=== PATIENT | male | born 1980 | race Two or more races ===

== ENCOUNTER 2020-03-29 06:09 | Outpatient (REF) | payer MEDICARE, MEDICAID, SELFPAY ==
[2020-03-29 11:33] LABS: Alanine Aminotransferase 23 U/L (0-40); Albumin Level 4.4 g/dL (3.5-5.0); Alkaline Phosphatase 53 U/L (39-117); Anion Gap 14 (12-20); Aspartate Amino Transferase 27 U/L (5-37); Bilirubin Total 0.4 mg/dL (0.0-1.0); Blood Urea Nitrogen 14 mg/dL (9-16); Calcium 8.6 mg/dL (8.4-10.2); Carbon Dioxide 25 mmol/L (22-29); Chloride 105 mmol/L (96-108); Cholesterol 235 mg/dL; Estimated Glomerular Filt Rate > 60; Glucose Fasting 92 mg/dL (60-99); HDL Cholesterol 49 mg/dL; LDL Cholesterol Calculated 168 mg/dl; Potassium 4.5 mmol/l (3.3-5.1); Sodium 139 mmol/L (135-145); Total Protein 7.1 g/dL (6.5-8.0); Triglycerides 91 mg/dL
[2020-03-29 11:56] LABS: TSH reflex Free T4 0.39 mIU/mL (0.32-4.0)
== END 2020-03-29 06:10 | disposition home or self-care (01) ==
LOC: HO.HMGCLDS 06:09
PROVIDERS: PCP Nurse Practitioner Family; Visit Provider Nurse Practitioner Family
DX: E78.5 Hyperlipidemia, unspecified (principal); R63.5 Abnormal weight gain; Z90.09 Acquired absence of other part of head and neck
CPT/HCPCS: 80053; 80061; 84443

== ENCOUNTER → 2020-05-20 10:14 | Outpatient (BNVA) | payer MEDICARE, MEDICAID, SELFPAY | PROVIDERS: PCP Nurse Practitioner Family; Visit Provider Internal Medicine Endocrinology, Diabetes & Metabolism | DX: Z76.89 Persons encountering health services in other specified circumstances (principal) | CPT/HCPCS: 99212 ==

== ENCOUNTER 2020-05-20 10:43 | Outpatient (REF) | payer MEDICARE, MEDICAID, SELFPAY ==
[2020-05-20 14:03] LABS: Cholesterol 200 mg/dL; HDL Cholesterol 48 mg/dL; LDL Cholesterol Calculated 134 mg/dl; Triglycerides 92 mg/dL
[2020-05-20 14:27] LABS: Free T4 (Free Thyroxine) 1.15 ng/dL (0.71-1.85); Thyroid Stimulating Hormone 0.73 uIU/mL (0.32-4.0); Vitamin D 25-OH Total 28.1 ng/mL (>30)
== END 2020-05-20 10:44 | disposition home or self-care (01) ==
LOC: HO.10HDL 10:43
PROVIDERS: Absent Provider Nurse Practitioner Family; Visit Provider Internal Medicine Endocrinology, Diabetes & Metabolism
DX: E89.0 Postprocedural hypothyroidism (principal); E05.00 Thyrotoxicosis with diffuse goiter without thyrotoxic crisis or storm; E78.5 Hyperlipidemia, unspecified; E55.9 Vitamin D deficiency, unspecified
CPT/HCPCS: 36415; 80061; 82306; 84439; 84443; 99212

== ENCOUNTER 2020-06-05 14:46 | Outpatient (REF) | payer MEDICAID, SELFPAY ==
--- NOTE | 2020-06-05 14:50 | XR_ITS ---
EXAMINATION: XR KNEE, RIGHT CLINICAL INFORMATION: Pain COMPARISON: None TECHNIQUE: Four views of the right knee. FINDINGS: No fracture or dislocation is seen. The patella may be slightly high or patella vinay. Bone alignment is otherwise normal. Joint spaces are normal. There is no joint effusion. There is an osteophyte at the patellar tendon insertion. XR/XR knee RT 4V IMPRESSION: Question high patella/patella vinay. Osteophyte at the tibial tubercle.
== END 2020-06-05 14:47 | disposition home or self-care (01) ==
LOC: HO.HMGCX 14:46
PROVIDERS: PCP Nurse Practitioner Family; Visit Provider Internal Medicine
DX: M25.561 Pain in right knee (principal)
CPT/HCPCS: 73564

== ENCOUNTER 2020-12-16 14:20 | Outpatient (REF) | payer MEDICARE, MEDICAID, SELFPAY ==
--- NOTE | ~2020-12-16 | US_ITS ---
EXAMINATION: US VENOUS ULTRASOUND WITH DOPPLER LOWER EXTREMITY, BILATERAL CLINICAL INFORMATION: Leg swelling. Right calf pain. Left thigh pain. Evaluate for deep vein thrombosis. COMPARISON: None TECHNIQUE: Ultrasound of the deep veins is performed from the hip to the calf with compression sonography and color and pulse Doppler assessment. Spectral analysis with color-flow imaging is performed. FINDINGS: RIGHT: There is normal venous compression and respiratory variation and augmented flow. The visualized common femoral vein, superficial femoral vein, profunda femoral vein, popliteal vein, and the trifurcation region shows no evidence of deep venous thrombosis. There is no significant popliteal fossa cyst. LEFT: There is normal venous compression and respiratory variation and augmented flow. The visualized common femoral vein, superficial femoral vein, profunda femoral vein, popliteal vein, and the trifurcation region shows no evidence of deep venous thrombosis. There is no significant popliteal fossa cyst. If the patient's symptoms persist, followup ultrasound in 5 days 7 days might be of value to exclude proximal propagation from a non-visualized calf vein. US/US venous duplex LE BI IMPRESSION: No DVT demonstrated in the right or left lower extremity.
== END 2020-12-16 14:21 | disposition home or self-care (01) ==
LOC: HO.HMGCX 14:20
PROVIDERS: Visit Provider Physician Assistant Medical
DX: M79.89 Other specified soft tissue disorders (principal); I74.3 Embolism and thrombosis of arteries of the lower extremities
CPT/HCPCS: 93970

== ENCOUNTER 2020-12-17 08:57 | Outpatient (REF) | payer MEDICARE, MEDICAID, SELFPAY ==
[2020-12-17 11:29] LABS: MANUAL DIFF FLAG NO
[2020-12-17 11:36] LABS: Basophils Percent Auto 0.8 % (0-2); Eosinophils Absolute Auto 0.1 X10*3/uL (0.0-0.4); Eosinophils Percent Auto 2.4 % (0-4); Hematocrit 43.1 % (42-52); Hemoglobin 14.1 g/dl (14.0-18.0); Imm Gran Abs Auto 0.01 X10*3/uL (0.00-0.03); Imm Gran Pct Auto 0.2 % (0.0-0.4); Lymphocytes Absolute Auto 2.2 X10*3/uL (1.2-4.9); Mean Corpuscular HGB Conc 32.7 g/dl (31.0-36.0); Mean Corpuscular Hemoglobin 30.1 pg (27.0-33.0); Mean Corpuscular Volume 91.9 fL (80-98); Mean Platelet Volume 10.2 fL (9.4-12.4); Monocytes Absolute Auto 0.5 X10*3/uL (0.1-1.2); Monocytes Percent Auto 9.1 % (2-11); Neutrophils Absolute Auto 2.1 X10*3/uL (2.0-8.3); Neutrophils Percent Auto 42.5 % (45-73); Platelet Count 345 X10*3/uL (160-400); Red Blood Count 4.69 X10*6/uL (4.60-5.80); Red Cell Distribution Width 13.8 % (11.0-16.0)
[2020-12-17 11:58] LABS: Alanine Aminotransferase 28 U/L (0-40); Albumin Level 4.4 g/dL (3.5-5.0); Alkaline Phosphatase 67 U/L (39-117); Anion Gap 13 (12-20); Aspartate Amino Transferase 33 U/L (5-37); Bilirubin Total 0.3 mg/dL (0.0-1.0); Blood Urea Nitrogen 17 mg/dL (9-16); C Reactive Protein 0.68 mg/dL (< or = 0.50); Calcium 9.3 mg/dL (8.4-10.2); Carbon Dioxide 25 mmol/L (22-29); Chloride 107 mmol/L (96-108); Estimated Glomerular Filt Rate 60; Glucose Random 94 mg/dL (60-115); Potassium 4.6 mmol/L (3.3-5.1); Sodium 140 mmol/L (135-145); Total Protein 7.4 g/dL (6.5-8.0)
[2020-12-17 13:27] LABS: Erythrocyte Sedimentation Rate 5 MM/HR (0-15)
== END 2020-12-17 08:58 | disposition home or self-care (01) ==
LOC: HO.HMGCLDS 08:57
PROVIDERS: PCP Nurse Practitioner Family; Visit Provider Physician Assistant Medical
DX: M79.89 Other specified soft tissue disorders (principal)
CPT/HCPCS: 36415; 80053; 85025; 85652; 86140

== ENCOUNTER 2021-01-15 06:04 | Outpatient (REF) | payer MEDICAID, SELFPAY ==
[2021-01-15 13:14] LABS: Free T4 (Free Thyroxine) 1.26 ng/dL (0.71-1.85); Thyroid Stimulating Hormone 0.56 uIU/mL (0.32-4.0)
== END 2021-01-15 06:05 | disposition home or self-care (01) ==
LOC: HO.HMGCLDS 06:04
PROVIDERS: PCP Nurse Practitioner Family; Visit Provider Internal Medicine
DX: E89.0 Postprocedural hypothyroidism (principal)
CPT/HCPCS: 36415; 84439; 84443

== ENCOUNTER → 2021-04-03 15:32 | Outpatient (BNVA) | payer MEDICAID, SELFPAY | PROVIDERS: PCP Nurse Practitioner Family; Visit Provider Surgery | DX: L02.01 Cutaneous abscess of face (principal); L73.1 Pseudofolliculitis barbae; Z79.899 Other long term (current) drug therapy | CPT/HCPCS: 10060; 99212 ==

== ENCOUNTER 2021-07-14 11:30 | Outpatient (REF) | payer MEDICAID, SELFPAY ==
[2021-07-14 12:19] LABS: Influenza A PCR NEGATIVE (Negative); Influenza B PCR NEGATIVE (Negative); Resp Syncy Virus RNA Qual PCR NEGATIVE (Negative); SARS COV2 PCR INHOUSE NEGATIVE (Negative)
== END 2021-07-14 11:31 | disposition home or self-care (01) ==
LOC: HO.LNP 11:30
PROVIDERS: Visit Provider Physician Assistant
DX: Z20.822 Contact with and (suspected) exposure to COVID-19 (principal); J06.9 Acute upper respiratory infection, unspecified; R05.9 Cough, unspecified
CPT/HCPCS: 0241U

== ENCOUNTER 2021-07-17 06:10 | Outpatient (REF) | payer MEDICAID, SELFPAY ==
[2021-07-17 11:54] LABS: Thyroid Stimulating Hormone 1.04 uIU/mL (0.32-4.0)
== END 2021-07-17 06:11 | disposition home or self-care (01) ==
LOC: HO.HMGCLDS 06:10
PROVIDERS: Visit Provider Internal Medicine Endocrinology, Diabetes & Metabolism
DX: E89.0 Postprocedural hypothyroidism (principal); Z90.09 Acquired absence of other part of head and neck
CPT/HCPCS: 36415; 84439; 84443; 99212

== ENCOUNTER 2022-12-18 07:33 | Outpatient (REF) | payer MEDICAID, SELFPAY ==
[2022-12-18 11:12] LABS: MANUAL DIFF FLAG NO
[2022-12-18 11:37] LABS: Basophils Percent Auto 0.9 % (0-2); Eosinophils Absolute Auto 0.1 X10*3/uL (0.0-0.4); Eosinophils Percent Auto 3.1 % (0-4); Hematocrit 43.5 % (42.0-52.0); Hemoglobin 14.3 g/dl (14.0-18.0); Imm Gran Abs Auto 0.01 X10*3/uL (0.00-0.03); Imm Gran Pct Auto 0.2 % (0.0-0.4); Lymphocytes Absolute Auto 1.9 X10*3/uL (1.2-4.9); Lymphocytes Percent Auto 43.5 % (20-40); Mean Corpuscular HGB Conc 32.9 g/dl (31.0-36.0); Mean Corpuscular Hemoglobin 29.7 pg (27.0-33.0); Mean Corpuscular Volume 90.4 fL (80.0-98.0); Mean Platelet Volume 10.1 fL (9.4-12.4); Monocytes Absolute Auto 0.4 X10*3/uL (0.1-1.2); Monocytes Percent Auto 10.4 % (2-11); Neutrophils Absolute Auto 1.8 x10*3/uL (2.0-8.3); Neutrophils Percent Auto 41.9 % (45-73); Platelet Count 330 X10*3/uL (160-400); Red Blood Count 4.81 X10*6/uL (4.60-5.80); Red Cell Distribution Width 13.8 % (11.0-16.0); White Blood Count 4.3 X10*3/uL (4.8-10.8)
[2022-12-18 11:59] LABS: Alanine Aminotransferase 25 U/L (0-40); Albumin Level 4.4 g/dL (3.5-5.0); Alkaline Phosphatase 62 U/L (39-117); Anion Gap 13 (12-20); Aspartate Amino Transferase 35 U/L (5-37); Bilirubin Total 0.3 mg/dL (0.0-1.0); Blood Urea Nitrogen 14 mg/dL (9-16); Calcium 9.3 mg/dL (8.4-10.2); Carbon Dioxide 25 mmol/L (22-29); Chloride 106 mmol/L (96-108); Cholesterol 305 mg/dL; Estimated Glomerular Filt Rate > 60; Glucose Fasting 97 mg/dL (60-99); HDL Cholesterol 58 mg/dL; LDL Cholesterol Calculated 232 mg/dl; Potassium 4.3 mmol/L (3.3-5.1); Sodium 140 mmol/L (135-145); Total Protein 7.6 g/dL (6.5-8.0); Triglycerides 77 mg/dL
[2022-12-18 12:14] LABS: TSH reflex Free T4 0.16 uIU/mL (0.32-4.0)
[2022-12-18 13:03] LABS: Free T4 (Free Thyroxine) 1.13 ng/dL (0.71-1.85)
== END 2022-12-18 07:34 | disposition home or self-care (01) ==
LOC: HO.HMGCLDS 07:33
PROVIDERS: PCP Nurse Practitioner Family; Visit Provider Nurse Practitioner Family
DX: Z00.00 Encounter for general adult medical examination without abnormal findings (principal)
CPT/HCPCS: 36415; 80053; 80061; 84439; 84443; 85025

== ENCOUNTER 2023-04-07 06:01 | Outpatient (REF) | payer MEDICAID, SELFPAY ==
[2023-04-07 11:20] LABS: Appearance Urine Clear; Color Urine Yellow; Glucose Urine UA Negative (Negative); Leukocyte Esterase Urine Negative (Negative); Nitrite Urine Negative (Negative); PH 6.5 (5.0-9.0); Specific Gravity - Urine >= 1.030 (1.005-1.025); UMIC TRIGGER UACC YES; Urine Blood Small (1+) (Negative); Urine Ketones Negative (Negative); Urine Protein Trace mg/dL (Neg-Trace)
[2023-04-07 11:26] LABS: Bacteria Urine None Seen (None Seen); Hyaline Casts Urine 0-2 /LPF (0-2); Squamous Epithelial Cell Urine 0-2 /HPF (0-2); WBC Urine 0-5 /HPF (0-5)
[2023-04-07 12:07] LABS: TSH reflex Free T4 1.11 uIU/mL (0.32-4.0)
== END 2023-04-07 06:02 | disposition home or self-care (01) ==
LOC: HO.HMGCLDS 06:01
PROVIDERS: PCP Nurse Practitioner Family; Visit Provider Nurse Practitioner Family
DX: Z00.00 Encounter for general adult medical examination without abnormal findings (principal); Z90.09 Acquired absence of other part of head and neck
CPT/HCPCS: 36415; 81001; 84443

== ENCOUNTER 2023-05-27 14:41 | Outpatient (AMB) | payer MEDICAID, SELFPAY ==
--- NOTE | 2023-05-27 14:54 | MHC.PC.OV ---
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 Allergies No Known Allergies [No Known Allergies*] Allergy (Unverified 05/27/23 14:58) methimazole Adverse Reaction (Unknown, Verified 05/27/23 14:58) transaminitis pravastatin Adverse Reaction (Unknown, Verified 05/27/23 14:58) Soreness Tobacco use date assessed: 05/27/23 Dental Screening Dental Screen Date: 05/27/23 Did you have a dental visit in the last 12 months?: Yes Did you have a dental problem in the last 6 months where you did not have access to dental care?: No Was dental information given to patient?: Patient has dentist HPI follow r/s Agoraphobia HPI Details HTN: Blood pressure is elevated today. He is not currently on any medications for this. Will have pt monitor his blood pressure at home and record readings. Denies chest pain, shortness of breath, headache, dizziness, and blurred vision. [facility] Medical History Patella-femoral syndrome Knee pain Overweight (BMI 25.0-29.9) Vitamin D deficiency Graves' orbitopathy Post-surgical hypothyroidism Lumbar radiculopathy Graves disease Tachycardia GERD (gastroesophageal reflux disease) Hyperthyroidism Dyslipidemia Asthma Surgical History Hx of total thyroidectomy H/O radioactive iodine thyroid ablation Hx of hand surgery History of shoulder surgery History of back surgery Family History Father No problems noted. Mother No problems noted. Brother No problems noted. Brother No problems noted. Sister Thyroid cancer Sister Thyroid cancer Sister No problems noted. Sister No problems noted. Son No problems noted. Daughter No problems noted. Daughter No problems noted. Social History Housing: House Alcohol intake: current Alcohol intake frequency: holidays/special occasions only Patient Tobacco Use Status: Former Tobacco user Quit Date: quit 10years ago e-Cigarette/Vaping Use: Never Used Second Hand Smoke Exposure: Yes service: No Current occupational status: employed Current occupation: [employer] Current occupational exposures/hazards: No Cognitive needs: No Hearing needs: No Vision needs: No Questionnaire PHQ-9 Over the last 2 weeks, how often have you been bothered by any of the following problems? 1. Little interest or pleasure in doing things: not at all 2. Feeling down, depressed, or hopeless: not at all 3. Trouble falling or staying asleep, or sleeping too much: several days 4. Feeling tired or having little energy: not at all 5. Poor appetite or overeating: not at all 6. Feeling bad about yourself - or that you are a failure or have let yourself or your family down: not at all 7. Trouble concentrating on things, such as reading the newspaper or watching television: several days 8. Moving or speaking so slowly that other people could have noticed. Or the opposite - being so fidgety or restless that you have been moving around a lot more than usual: not at all 9. Thoughts that you would be better off or of hurting yourself in some way: not at all Total score: 2 Source: Developed by Drs. Patel Adan, Leticia Rowley, Raji French and colleagues, with an educational maxime from [employer]. Thrive Questionnaire Date Thrive assessed: 05/27/23 I am a: Patient What is your living situation today?: I have a steady place to live Within the past 12 months, did the food you bought not last and you didn't have the money to get more?: Never true Within the past 12 months, did you worry whether your food would run out before you got money to buy more?: Never true Do you have trouble paying for medicines?: No Do you have trouble getting transportation to medical appointments?: No Do you have trouble paying your heating and electricity bill?: No Do you have trouble taking care of your child, family member or friend?: No Do you have trouble with day-to-day activities such as bathing, preparing meals, shopping, managing finances, etc.?: No Are you currently unemployed and looking for a job?: Yes Are you interested in more education?: No THRIVE Score: 0 AUDIT C Alcohol Use Questionnaire (AUDIT-C) 1. How often do you have a drink containing alcohol?: Monthly or less 2. How many drinks containing alcohol do you have on a typical day when you are drinking?: 1 or 2 3. How often do you have six or more drinks on one occasion?: Never Total Score: 1 JESSICA-7 AMB Questionnaire JESSICA-7 Date JESSICA - 7 assessed: 05/27/23 Feeling nervous, anxious, or on edge: 1 = Several days Not being able to stop or control worryin = Several days Worrying too much about different things: 1 = Several days Trouble relaxin = Several days Being so restless that it is hard to sit still: 1 = Several days Becoming easily annoyed or irritable: 1 = Several days Feeling afraid as if something awful might happen: 0 = Not at all Total JESSICA-7 score (0-4 normal; 5-9 mild; 10-14 moderate; 15-21 severe): 6 Source: Developed by Drs. Patel Adan, Leticia Rowley, Raji French and colleagues, with an educational maxime from [employer]. Review of Systems Const Reports as per HPI Physical exam (Primary Care) Vital Signs: Last Vital Signs Pulse 74 05/27/23 14:55 BP 136/82 05/27/23 15:44 Pulse Ox 97 05/27/23 14:55 Oxygen Delivery Method Room Air 05/27/23 14:55 BMI result Body Mass Index 29.2 Tobacco/Smoking Status: Tobacco use Status Tobacco use date assessed 05/27/23 05/27/23 15:01 Patient Tobacco Use Status Former Tobacco user 05/27/23 15:01 e-Cigarette/Vaping Use Never Used 05/27/23 15:01 PHQ-9: PHQ-9 Score PHQ-9: Total score 2 05/27/23 15:44 Thrive Assessment: Date of Thrive Assessment Date Thrive assessed 05/27/23 05/27/23 15:10 Const General: cooperative Orientation/consciousness: patient oriented x3 Resp Effort & Inspection: normal respiratory effort Auscultation: clear to auscultation bilaterally Cardio Rate: regular rate Rhythm: regular rhythm Heart sounds: S1 normal heart sound present and S2 normal heart sound present Neuro General: patient oriented x3 Extrem Right lower extremity: no edema Left lower extremity: no edema Psych Appearance: grossly normal Mental Status: mental status grossly normal Speech and movement: Normal speech and movement present Affect: normal affect Attitude: cooperative Thought process: Normal thought process present Thought content: Normal thought content present Insight: Good insight present (Psych) Judgement: Good judgement present (Psych) Assessment and Plan Assessment & Plan (1) HTN (hypertension): Code(s): I10 - Essential (primary) hypertension Plan The patient agreed to the use of a medical lab tech instructor for this encounter. Scribed for JOSELIN Dinero by Alia Peña medical lab tech instructor, on 05/27/2023 at 15:25 EST. Coding Level of Care Code Est Pt Level 3 (38766) Diagnoses HTN (hypertension) I10
[2023-05-27 14:55] VITALS: BP 140/76; PULSE 74; O2SAT 97; BMI 29.2
[2023-05-27 15:44] VITALS: BP 136/82
== END 2023-05-27 16:41 | disposition home or self-care (01) ==
PROVIDERS: PCP Nurse Practitioner Family; Visit Provider Nurse Practitioner Family
DX: I10 Essential (primary) hypertension (principal)
CPT/HCPCS: 99213

== ENCOUNTER 2023-05-28 08:58 | Outpatient (REF) | payer MEDICAID, SELFPAY ==
[2023-05-28 16:43] LABS: Urine Cytology See Pathology rpt
== END 2023-05-28 08:59 | disposition home or self-care (01) ==
LOC: HO.LAB 08:58
PROVIDERS: PCP Nurse Practitioner Family; Visit Provider Urology
DX: R31.9 Hematuria, unspecified (principal); F40.00 Agoraphobia, unspecified; Z87.891 Personal history of nicotine dependence
CPT/HCPCS: 81003; 88112; 99202

== ENCOUNTER 2023-05-28 08:58 | Outpatient (AMB) | payer MEDICAID, SELFPAY ==
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
== END 2023-05-28 10:13 | disposition home or self-care (01) ==
PROVIDERS: PCP Nurse Practitioner Family; Visit Provider Urology
DX: R31.9 Hematuria, unspecified (principal); Z87.891 Personal history of nicotine dependence; F40.00 Agoraphobia, unspecified; Z13.9 Encounter for screening, unspecified
CPT/HCPCS: 99204

== ENCOUNTER 2023-06-16 13:34 | Outpatient (REF) | payer MEDICAID, SELFPAY ==
--- NOTE | ~2023-06-16 | CT_ITS ---
EXAMINATION: CT ABDOMEN AND PELVIS WITHOUT AND WITH CONTRAST CLINICAL INFORMATION: Hematuria unspecified COMPARISON: None available. TECHNIQUE: Multidetector volumetric imaging was performed of the abdomen and pelvis before and after the IV administration of 85 mL of Omnipaque 300 intravenous contrast. Sagittal and coronal reformatted images were obtained on the technologist's workstation. This CT examination was performed using dose optimization techniques as appropriate, variously including the following: *Automated exposure control *Adjustment of mA and/or kV according to patient size (this includes techniques or standardized protocols for targeted exams where dose is matched to indication/reason for exam; i.e. extremities or head) *Use of iterative reconstruction technique DLP: 773 mGy-cm FINDINGS: LUNG BASES: Minor dependent density at the right lung base. No pleural effusions. LIVER, GALLBLADDER, AND BILIARY TREE: No focal hepatic mass. No intrahepatic biliary dilatation. The gallbladder is unremarkable with no evidence of radiopaque gallstones, gallbladder wall thickening, or obvious pericholecystic inflammatory changes. PANCREAS: Unremarkable SPLEEN: Unremarkable ADRENAL GLANDS: Right adrenal normal. There is slight nodularity and thickening of the left intrarenal at 10.5 x 12.8 mm. This is probably a small adenoma. KIDNEYS AND URETERS: The kidneys are normal in size, shape, and attenuation. No hydronephrosis, hydroureter, or calculi seen. No perinephric stranding. The ureters are normal in course and caliber. No evidence for calcifications seen along the course of the ureters or within the bladder. BLADDER: Unremarkable GASTROINTESTINAL TRACT: Moderate stool burden. No bowel obstruction or right or left lower quadrant inflammatory change. Appendix normal. ABDOMINAL WALL: No significant hernia is appreciated. LYMPH NODES: Normal VASCULAR: Aorta is atherosclerotic but nonaneurysmal. PELVIC VISCERA: Unremarkable OSSEOUS STRUCTURES: Advanced degenerative change at the lumbosacral junction. CT/CT abdomen pelvis wo/w IV con IMPRESSION: Unremarkable study. No evidence for nephrolithiasis or hydronephrosis. A cause for this patient's hematuria has not been discovered exam. Best practice recommendation: Small nonspecific left adrenal nodule. Recommend 1-year followup adrenal protocol CT. Also, if clinically indicated, consider concurrent laboratory evaluation for possible pheochromocytoma. Fleischner guidelines were followed.
[2023-06-16] MEDS: iohexoL 350 MG/ML 100 ML INFUS..BTL 85 ML IV (14:30)
== END 2023-06-16 13:35 | disposition home or self-care (01) ==
LOC: HO.CT 13:34
PROVIDERS: PCP Nurse Practitioner Family; Visit Provider Urology
DX: R31.9 Hematuria, unspecified (principal)
CPT/HCPCS: 74178; Q9967

== ENCOUNTER 2023-07-06 05:50 | Day surgery (SDC) | payer MEDICAID, SELFPAY ==
--- NOTE | 2023-07-02 14:50 | HO.ANESPROP2 ---
Documented by User: Juanita Montgomery NP 07/02/23 14:51 HPI - Anesthesia Eval Consult details Narrative: 43yo M for Cystoscopy,with Possible Bladder Biopsy PMFSH Active Problems Active Problems: All Active Problems (Updated 05/28/23 @ 10:26 by Milton Bartholomew MD) History of nicotine use (Acute) Hematuria (Acute) HTN (hypertension) (Acute) Microhematuria (Acute) Agoraphobia (Acute) Cerumen impaction (Acute) Physical exam (Acute) Abscess (Acute) Leg swelling (Acute) Patella-femoral syndrome (Acute) Knee pain (Acute) Overweight (BMI 25.0-29.9) (Acute) Vitamin D deficiency (Acute) Graves' orbitopathy (Acute) Post-surgical hypothyroidism (Acute) Dyslipidemia (Acute) H/O thyroidectomy (Acute) Weight gain (Acute) Past Medical History Medical History (Updated 07/06/23 @ 06:37 by Diana Hernandez RN) Pericarditis Patella-femoral syndrome Knee pain Overweight (BMI 25.0-29.9) Vitamin D deficiency Graves' orbitopathy Post-surgical hypothyroidism Lumbar radiculopathy Graves disease Tachycardia GERD (gastroesophageal reflux disease) Hyperthyroidism Dyslipidemia Asthma Family History Family History Father No problems noted. Mother No problems noted. Brother No problems noted. Brother No problems noted. Sister Thyroid cancer Sister Thyroid cancer Sister No problems noted. Sister No problems noted. Son No problems noted. Daughter No problems noted. Daughter No problems noted. Surgical History Surgical History (Updated 07/06/23 @ 06:39 by Diana Hernandez RN) History of eye surgery Hx of total thyroidectomy H/O radioactive iodine thyroid ablation Hx of hand surgery History of shoulder surgery History of back surgery Social History Social History Housing: House Alcohol intake: current Alcohol intake frequency: holidays/special occasions only Patient Tobacco Use Status: Former Tobacco user Quit Date: quit 10years ago e-Cigarette/Vaping Use: Never Used Second Hand Smoke Exposure: Yes Use of substances other than those prescribed or required for medical reasons: Yes Are you DNR?: No Advance Directives: No Advance Directives Information Provided: Yes service: No Current occupational status: employed Current occupation: [employer] Current occupational exposures/hazards: No Cognitive needs: No Hearing needs: No Vision needs: No Meds Allergies Allergy/AdvReac Type Severity Reaction Status Date / Time methimazole AdvReac Unknown transaminit Verified 05/27/23 14:58 is pravastatin AdvReac Unknown Soreness Verified 05/27/23 14:58 Home Medications Medication Instructions Recorded Confirmed Last Taken Type cholecalciferol (vitamin D3) 50 50 mcg PO DAILY 05/28/23 07/06/23 07/06/23 History mcg (2,000 unit) capsule Assessment and Plan Assessment Anesthesia Assessment: Chart Reviewed Documented by User: Camilo Alanis MD 07/06/23 07:15 [facility] Past Medical History Medical History (Updated 07/06/23 @ 06:37 by Diana Hernandez RN) Pericarditis Patella-femoral syndrome Knee pain Overweight (BMI 25.0-29.9) Vitamin D deficiency Graves' orbitopathy Post-surgical hypothyroidism Lumbar radiculopathy Graves disease Tachycardia GERD (gastroesophageal reflux disease) Hyperthyroidism Dyslipidemia Asthma Family History Family History Father No problems noted. Mother No problems noted. Brother No problems noted. Brother No problems noted. Sister Thyroid cancer Sister Thyroid cancer Sister No problems noted. Sister No problems noted. Son No problems noted. Daughter No problems noted. Daughter No problems noted. Family history of problems with anesthesia: No Surgical History Surgical History (Updated 07/06/23 @ 06:39 by Diana Hernandez RN) History of eye surgery Hx of total thyroidectomy H/O radioactive iodine thyroid ablation Hx of hand surgery History of shoulder surgery History of back surgery History of Problems with Anesthesia: No Social History Social History Housing: House Alcohol intake: current Alcohol intake frequency: holidays/special occasions only Patient Tobacco Use Status: Former Tobacco user Quit Date: quit 10years ago e-Cigarette/Vaping Use: Never Used Second Hand Smoke Exposure: Yes Use of substances other than those prescribed or required for medical reasons: Yes Are you DNR?: No Advance Directives: No Advance Directives Information Provided: Yes service: No Current occupational status: employed Current occupation: [employer] Current occupational exposures/hazards: No Cognitive needs: No Hearing needs: No Vision needs: No Meds Allergies Allergy/AdvReac Type Severity Reaction Status Date / Time methimazole AdvReac Unknown transaminit Verified 05/27/23 14:58 is pravastatin AdvReac Unknown Soreness Verified 05/27/23 14:58 Home Medications Medication Instructions Recorded Confirmed Last Taken Type cholecalciferol (vitamin D3) 50 50 mcg PO DAILY 05/28/23 07/06/23 07/06/23 History mcg (2,000 unit) capsule Exam Airway Mallampati Class: II TM Dist: >3cm Neck ROM: Full Loose/Missing/Broken Teeth: No Heart: rrr Lungs: cta b/l Assessment and Plan Assessment Anesthesia Assessment: Anesthesia Plan Discussed and Smoking Cess. Discussed Final Anesthetic Review Family History of Problems with Anesthesia: No History of Problems with Anesthesia: No NPO: Yes ASA Class: II Final Preanesthetic Review: No Changes in Pt Med Stat, Consent Obtained/Reviewed, Anes Risks/Benef Reviewed and DNR Form (If Appl.) Patient Risk: Intermediate Procedure Risk: Low Anesthetic Plan Anesthetic Plan: GA (cannabis user) Disposition: Standard PACU
[2023-07-06 06:31] VITALS: BMI 27.7
[2023-07-06] MEDS: Lactated Ringers 1,000 ML 100 ML IVCONT (07:17)
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
--- NOTE | 2023-07-06 08:06 | W.PM.OPN ---
Operative Note Operative Note Date of Service: 07/06/23 Narrative: PREOP DIAGNOSIS: Hematuria POSTOP DIAGNOSIS: SAME PROCEDURE: CYSTOSCOPY SURGEON: Milton Bartholomew MD ANESTHESIA: General FINDINGS: No suspicious bladder lesions visualized. Bladder wall thickening noted. Indications: Yuri is a 43-year-old male who is here for evaluation for hematuria. He states that he has seen blood in the urine in the past. Recent Urinalysis microscopic hematuria. Past Medical history -agoraphobia, history of thyroidectomy, history of radiation to the thyroid. Family history of father with kidney disease requiring dialysis currently . history of nicotine use he states that he started smoking cigarettes age 15 up to 2 packs per week and quit about 6-7 years. The patient denies lower urinary tract symptoms, denies dysuria. CT Urogram on 06/16/23 negative for renal calculi or masses. Details of procedure: The patient was brought into the operating room placed on the OR table in supine position. 2 g of Ancef IV. General anesthesia was administered. The patient was repositioned into lithotomy position, prepped and draped in the usual sterile fashion. Time-out was done per protocol. 2% lidocaine jelly inserted transurethrally. A 22 fr cystoscope was placed transurethrally into the bladder. The bulbous urethra was within normal limits. The prostatic urethra noted prominent median lobe. The right and left ureteral orifices were visualized. Clear efflux of urine from both ureteral orifices. The entire bladder was visualized. [id number] trabeculations noted. There were no suspicious bladder lesions seen. The cystoscope was removed. 2% lidocaine urojet was passed transurethrally into the bladder. The patient was brought out of anesthesia and taken to recovery in stable condition. Complications: None EBL: Minimal less than 5 mL Drains: None
[2023-07-06 08:15] VITALS: BP 141/75; PULSE 75; RESP 18; TEMP 36.7; O2SAT 97
[2023-07-06 08:20] VITALS: BP 118/72; PULSE 68; RESP 16; O2SAT 98
[2023-07-06 08:25] VITALS: BP 121/78; PULSE 60; RESP 16; O2SAT 100
[2023-07-06 08:30] VITALS: BP 126/75; PULSE 69; RESP 16; O2SAT 100
[2023-07-06] MEDS: Phenazopyridine HCL 200 MG TABLET PO (08:38)
[2023-07-06 08:45] VITALS: BP 120/66; PULSE 60; RESP 16; TEMP 36.8; O2SAT 99
== END 2023-07-06 09:23 | disposition home or self-care (01) ==
PROVIDERS: PCP Nurse Practitioner Family; Visit Provider Urology
PROC: (CPT 52000; principal; 2023-07-06 07:30)
DX: R31.9 Hematuria, unspecified (principal); I10 Essential (primary) hypertension; E78.5 Hyperlipidemia, unspecified; M22.2X9 Patellofemoral disorders, unspecified knee; E55.9 Vitamin D deficiency, unspecified; E05.00 Thyrotoxicosis with diffuse goiter without thyrotoxic crisis or storm; E89.0 Postprocedural hypothyroidism; Z87.891 Personal history of nicotine dependence; Z90.09 Acquired absence of other part of head and neck; Z79.02 Long term (current) use of antithrombotics/antiplatelets; Z79.899 Other long term (current) drug therapy
CPT/HCPCS: 52000; J0690; J2704; J3010

== ENCOUNTER → 2023-07-06 05:50 | Outpatient (BNV) | payer MEDICAID, SELFPAY | PROVIDERS: PCP Nurse Practitioner Family; Visit Provider Urology | DX: R31.9 Hematuria, unspecified (principal) | CPT/HCPCS: 52000 ==

== ENCOUNTER 2024-06-16 07:57 | Outpatient (AMB) | payer OTHER, SELFPAY ==
--- OUTSIDE RECORDS SUMMARY | 2024-06-16 07:59 | XMS_ITS | Clinical Summary ---
Author Organization [facility] ity Address [address] [place] [address] Care Team Providers Care Government Gauger Name Role Phone Nicola Vital MD Primary Care Provider [phone] Medical History Medical History Date Comments Backache, unspecified 12/24/2005 DX:Backach e, unspecified Backache, unspecified 12/24/2005 DX:Backach e, unspecified; COMMENT: chronic back pain [place]; Neurostimulator; Family History Medical History Relation Name Comments Cataracts Father Blindness Maternal Grandfather Glaucoma Neg Hx Macular degeneration Neg Hx Strabismus Neg Hx Relation Name Status Comments Father Maternal Grandfather Social History Tobacco Use Types Packs/Day Years Used Date Smoking Tobacco: Every Day Cigarettes Alcohol Use Standard Drinks/Week Comments Yes 0 (1 standard drink = 0.6 oz pur e alcohol) Sex and Gender Information Value Date Recorded Sex Assigned at Not on file Legal Sex Male 6:54 AM EST Gender Identity Not on file Sexual Orientation Not on file Obstetrics History Plan of Treatment Health Maintenance Due Date Last Done Comments DTaP,Tdap,and Td Vaccines (1 - Tdap) 1998 Hepatitis B Vaccines (1 of 3 - 19+ 3-dose series) 1998 COVID-19 Vaccine (2023-2 5 season) 2024 Influenza Vaccine (#1) 2024 HIB Vaccines Aged Out No longer eligi ble based on patient's age to complete this topic HPV Vaccines Aged Out No longer eligi ble based on patient's age to complete this topic Hepatitis A Vaccines Aged Out No long er eligible based on patient's age to complete this topic IPV Vaccines Aged Out No longer eligi ble based on patient's age to complete this topic MMR Vaccines Aged Out No longer eligi ble based on patient's age to complete this topic Meningococcal ACWY Vaccine Aged Out N o longer eligible based on patient's age to complete this topic Pneumococcal Vaccine: Pediat rics (0 to 5 Years) and At-Risk Patients (6 to 64 Years) Aged Out No longer eligible b ased on patient's age to complete this topic RSV Immunization Patients Un june 20 months Aged Out No longer eligible b ased on patient's age to complete this topic Varicella Vaccines Aged Out No longer eligible based on patient's age to complete this topic Care Teams Government Gauger Relationship Specialty Start Date End Date Nicola Vital MD PCP - General Internal Medicine 12/16/11
--- NOTE | 2024-06-16 08:11 | MHC.OFFWIV ---
Intake Vital Signs 06/16/24 08:12 Weight 209 lb BP 120/80 Blood Pressure Location Rt brachial Position Sitting Pulse 72 Pulse Source Pulse Oximeter Pulse Oximetry (%) 98 Oxygen Delivery Method Room Air Intake Visit Reasons: EP extreme pain on lower back Intake Note: Patient here for left sided lower back pain, he has a stimulator placed and tried pushing the button and nothing is working. Patient Tobacco Use Status: Former Tobacco user Allergies methimazole Adverse Reaction (Unknown, Verified 06/16/24 08:15) transaminitis pravastatin Adverse Reaction (Unknown, Verified 06/16/24 08:15) Soreness Do you need a note to return to daycare/school/sports/work: Yes HPI HPI Comments History of Present Illness Details History of Present Illness - The patient is a 44-year-old male presenting with left leg pain characterized as sharp and shooting. It has persisted for several weeks, impacting sleep due to its severity. - Initial treatment at the hospital included gabapentin, which offered temporary relief, supplemented by Tylenol. Aleve was trialed with limited success. - Reports possible swelling behind the knee - Denies bowel or bladder incontinence but notes occasional weakness and tingling in the left leg. Physical Exam General: Cooperative, healthy appearing, comfortable, no acute distress and well developed Orientation: Patient oriented x3 Limitations: Limitations noted in left leg due to pain Head: Normal to inspection Ears: Hearing grossly normal bilaterally Nose: Normal external nose present Face and sinus: normal facial exam Eyes: Appearance normal, both eyes and all related structures Neck: Normal visual inspection and Yes full ROM Respiratory: Normal respiratory effort and able to speak in complete sentences. Skin: No rashes or lesions noted Neuro: Patient oriented x3 Extremities: + straight leg on left side. negative straight leg teston right side. [facility] Medical History (Updated 06/16/24 @ 08:24 by Celeste Cheng PA-C) Pericarditis Patella-femoral syndrome Knee pain Overweight (BMI 25.0-29.9) Vitamin D deficiency Graves' orbitopathy Post-surgical hypothyroidism Lumbar radiculopathy Graves disease Tachycardia GERD (gastroesophageal reflux disease) Hyperthyroidism Dyslipidemia Asthma Surgical History (Updated 07/06/23 @ 06:39 by Diana Hernandez RN) History of eye surgery Hx of total thyroidectomy H/O radioactive iodine thyroid ablation Hx of hand surgery History of shoulder surgery History of back surgery Family History Father No problems noted. Mother No problems noted. Brother No problems noted. Brother No problems noted. Sister Thyroid cancer Sister Thyroid cancer Sister No problems noted. Sister No problems noted. Son No problems noted. Daughter No problems noted. Daughter No problems noted. Social History Housing: House Alcohol intake: current Alcohol intake frequency: holidays/special occasions only Patient Tobacco Use Status: Former Tobacco user e-Cigarette/Vaping Use: Never Used Second Hand Smoke Exposure: Yes service: No Current occupational status: employed Current occupation: [employer] Current occupational exposures/hazards: No Cognitive needs: No Hearing needs: No Vision needs: No Review of Systems Const All systems reviewed & are unremarkable except as noted in HPI and below Physical Exam Vital Signs: Last Vital Signs Pulse 72 06/16/24 08:12 BP 120/80 06/16/24 08:12 Pulse Ox 98 06/16/24 08:12 Oxygen Delivery Method Room Air 06/16/24 08:12 Assessment & Plan Assessment & Plan (1) Sciatica of left side: Code(s): M54.32 - Sciatica, left side Plan: The patient will commence prednisone treatment to address inflammation from both sciatica and a suspected Guevara's cyst, following the outlined dosage of two tablets per day for five days, taken in the morning to mitigate insomnia. While on prednisone, NSAID intake such as Aleve or Motrin must be avoided to minimize gastrointestinal bleeding risks, but Tylenol and gabapentin may continue. The patient should observe the symptom response over the weekend and consult with his primary care physician if symptoms persist. Patient was informed and verbally consented to the use of an ambient scribe for clinic note documentation during this visit. Medications: New prednisone 40 mg (2 x 20 mg) PO DAILY 10 tabs 0RF Coding Level of Care Code Est Pt Level 3 (14002) Diagnoses Sciatica of left side M54.32
[2024-06-16 08:12] VITALS: BP 120/80; PULSE 72; O2SAT 98
== END 2024-06-16 08:28 | disposition home or self-care (01) ==
PROVIDERS: PCP Nurse Practitioner Family; Visit Provider Physician Assistant
DX: M54.32 Sciatica, left side (principal)

== ENCOUNTER → 2024-06-16 07:57 | Outpatient (BNVA) | payer OTHER, SELFPAY | PROVIDERS: PCP Nurse Practitioner Family ==

== ENCOUNTER 2024-07-11 14:18 | Outpatient (REF) | payer OTHER, SELFPAY ==
--- NOTE | ~2024-07-11 | XR_ITS ---
EXAMINATION: XR LUMBOSACRAL SPINE CLINICAL INFORMATION: M54.32 - Sciatica, left side COMPARISON: 06/09/18 CT lumbar. TECHNIQUE: Three views of the lumbosacral spine. FINDINGS: Minimal right convex scoliosis. Mild straightening of the normal lordosis. No fracture, subluxation, compression deformity, or suspicious bone lesion. Spinal stimulator device noted, entering the spine at T12-L1 interlaminar space. Moderate disc degeneration present L3-4, and L5-S1. Mild disc degeneration present at L4-5. Normal facet alignment bilaterally. Mild degenerative facet changes L4-S1. Inflammatory arthropathy of the SI joints, with periarticular sclerosis and small erosions present. No discrete soft tissue abnormalities. XR/XR lumbar spine 2-3V IMPRESSION: 1. Findings suggesting inflammatory sacroiliitis. 2. Lumbar spondylosis most significant at L3-4 and L5-S1. 3. Spinal stimulator device present Electronically signed by: Tong Emery MD 07/14/2024 11:05 AM EDT
--- OUTSIDE RECORDS SUMMARY | 2024-07-11 18:16 | XMS_ITS | Clinical Summary ---
Author Organization [facility] ity Address [address] [place] [address] Care Team Providers Care Restorative Rehab Aide Name Role Phone Nicola Vital MD Primary Care Provider [phone] Medical History Medical History Date Comments Backache, [...] age to complete this topic Care Teams Restorative Rehab Aide Relationship Specialty Start Date End Date Nicola Vital MD PCP - General Internal Medicine 12/16/11
== END 2024-07-11 14:19 | disposition home or self-care (01) ==
LOC: HO.HMGCX 14:18
PROVIDERS: PCP Nurse Practitioner Family; Visit Provider Nurse Practitioner Family
DX: M54.32 Sciatica, left side (principal)
CPT/HCPCS: 72100; 96127; 99212

== ENCOUNTER 2024-07-11 14:18 | Outpatient (AMB) | payer MEDICAID, SELFPAY ==
[2024-07-11 14:25] VITALS: BP 136/80; PULSE 76; TEMP 36.6; O2SAT 98; BMI 26.2
--- NOTE | 2024-07-11 14:25 | A.OFFPC_ITS ---
Vital Signs 07/11/24 14:25 Height 6 ft 2 in Weight 204 lb 4 oz BMI 26.2 BP 136/80 Blood Pressure Location Lt brachial Position Sitting Pulse 76 Pulse Source Pulse Oximeter Temp 97.8 F Temp Source Oral Pulse Oximetry (%) 98 Intake Visit Reasons: f/u hip pain Intake Note: pt is here for hip pain started from left knee Examination Scorer Required: No Accompanied by: Self / Same As Patient Allergies methimazole Adverse Reaction (Unknown, Verified 07/11/24 15:09) transaminitis pravastatin Adverse Reaction (Unknown, Verified 07/11/24 15:09) Soreness Medication List - Last Reconciled 07/11/24 by NISHI Clements- atorvastatin 40 mg PO BEDTIME 90 days baclofen 10 mg PO BEDTIME 30 days cholecalciferol (vitamin D3) 50 mcg PO DAILY dexamethasone 4 mg PO DAILY 9 days gabapentin 100 mg PO 3XD 30 days Levoxyl (levothyroxine) 1 tab once a day for 6 days, 1.5 tab on the 7th day; NS Tobacco use date assessed: 07/11/24 Dental Screening Dental Screen Date: 07/11/24 Did you have a dental visit in the last 12 months?: Yes Did you have a dental problem in the last 6 months where you did not have access to dental care?: No Was dental information given to patient?: Patient has dentist HPI f/u hip pain HPI Details Chief Complaint The patient presents with ongoing left sciatica pain. History of Present Illness The patient is a 44-year-old male presenting with ongoing left sciatica pain following an incident in April where he re-injured his back playing basketball. The left lower back pain radiates down the buttock and posterior thigh into the knee. A history of three unspecified spinal surgeries complicates his presentation, alongside the presence of a spinal cord stimulator implanted 15 to 20 years prior which had been effective until the latest exacerbation. Symptoms suggest a pinched nerve, as evidenced by his ability to walk on heels and toes without issue and positive straight leg raise testing on the left side targeting the S1 and S2 regions. Current management includes gabapentin, recently increased, and physical therapy, with further imaging considered as needed. NO signs of cauda equina noted Social History - Exercise: Engages in sports such as [employer] sketball, suggesting an active lifestyle. Health Maintenance Review of Systems Physical Exam General: Cooperative, healthy appearing, comfortable, no acute distress and well developed Orientation: Patient oriented x3 Limitations: No limitations Head: Normal to inspection Ears: Hearing grossly normal bilaterally Nose: Normal external nose present Face and sinus: Normal facial exam Eyes: Appearance normal, both eyes and all related structures Neck: Normal visual inspection and Yes full ROM Respiratory: Normal respiratory effort and able to speak in complete sentences. Clear to auscultation bilaterally Cardiovascular: Regular rate and rhythm. Normal S1 and S2 GI: Normal to inspection. Soft to palpation and nontender Skin: No rashes or lesions noted Neuro: Patient oriented x3 Extremities: Positive straight leg raises, especially with the left S1 S2. Normal to inspection. able to heel and toe walk without exac of pain. Results Plan The management plan for left sciatica pain involves a dexamethasone taper, continuation and increase of gabapentin, and nighttime muscle relaxants. Stretching exercises and physical therapy are crucial components of the treatment strategy. Consideration of further imaging will be made if necessary based on the response to current therapies. Discussion Notes I discussed with the patient that the likely underlying cause of his symptoms is nerve impingement, potentially related to historical spinal issues or a recent mechanical back injury. The benefits and risks of using gabapentin, dexamethasone, and muscle relaxants were explained in detail, including potential side effects and expected outcomes. The patient was informed about the importance of physical therapy and stretching in managing his condition and improving his functional status. We also discussed the possibility of additional imaging, besides the XR already ordered, if his condition does not improve with current interventions. The patient agreed to the outlined plan and was advised on signs and symptoms that should prompt immediate medical evaluation. Patient Instructions - Take prescribed medications as directe d. - Increase gabapentin dosage as discusse d. - Use prescribed muscle relaxants at [facility]. - Engage in stretching exercises regular ly. - Participate in physical therapy sessio ns. - Monitor symptoms and seek medical atte ntion if the condition worsens. - Follow up as advised for re-evaluation . [facility] Medical History Pericarditis Patella-femoral syndrome Knee pain Overweight (BMI 25.0-29.9) Vitamin D deficiency Graves' orbitopathy Post-surgical hypothyroidism Lumbar radiculopathy Graves disease Tachycardia GERD (gastroesophageal reflux disease) Hyperthyroidism Dyslipidemia Asthma Surgical History History of eye surgery Hx of total thyroidectomy H/O radioactive iodine thyroid ablation Hx of hand surgery History of shoulder surgery History of back surgery Family History Father No problems noted. Mother No problems noted. Brother No problems noted. Brother No problems noted. Sister Thyroid cancer Sister Thyroid cancer Sister No problems noted. Sister No problems noted. Son No problems noted. Daughter No problems noted. Daughter No problems noted. Social History Housing: House Alcohol intake: current Alcohol intake frequency: holidays/special occasions only Patient Tobacco Use Status: Former Tobacco user e-Cigarette/Vaping Use: Never Used Second Hand Smoke Exposure: Yes service: No Current occupational status: employed Current occupation: [employer] Current occupational exposures/hazards: No Cognitive needs: No Hearing needs: No Vision needs: No Questionnaire PHQ-9 Over the last 2 weeks, how often have you been bothered by any of the following problems? 1. Little interest or pleasure in doing things: nearly every day 2. Feeling down, depressed, or hopeless: not at all 3. Trouble falling or staying asleep, or sleeping too much: nearly every day 4. Feeling tired or having little energy: several days 5. Poor appetite or overeating: several days 6. Feeling bad about yourself - or that you are a failure or have let yourself or your family down: not at all 7. Trouble concentrating on things, such as reading the newspaper or watching television: several days 8. Moving or speaking so slowly that other people could have noticed. Or the opposite - being so fidgety or restless that you have been moving around a lot more than usual: not at all 9. Thoughts that you would be better off or of hurting yourself in some way: not at all Total score: 9 Depression Screening Interpretation: Positive (denies any si or hi, reports this is do to lack of sleep from injury) Depression Screening Done: Yes 42758 - PHQ-9 Billing: Yes Source: Developed by Drs. Patel Adan, Leticia Rowley, Raji French and colleagues, with an educational maxime from [employer]. Thrive Questionnaire Date Thrive assessed: 07/11/24 I am a: Patient What is your living situation today?: I have a steady place to live Within the past 12 months, did the food you bought not last and you didn't have the money to get more?: Never true Within the past 12 months, did you worry whether your food would run out before you got money to buy more?: Never true Do you have trouble paying for medicines?: Yes Do you have trouble getting transportation to medical appointments?: No Do you have trouble paying your heating and electricity bill?: No Do you have trouble taking care of your child, family member or friend?: No Do you have trouble with day-to-day activities such as bathing, preparing meals, shopping, managing finances, etc.?: Yes Are you currently unemployed and looking for a job?: No Are you interested in more education?: No Please select the resources that you would like help with: None Currently or been in a relationship where the following occur: No concerns reported THRIVE Score: 0 AUDIT C Alcohol Use Questionnaire (AUDIT-C) 1. How often do you have a drink containing alcohol?: Never 3. How often do you have six or more drinks on one occasion?: Never Total Score: 0 Score Reviewed/Action Taken: Yes JESSICA-7 AMB Questionnaire JESSICA-7 Date JESSICA - 7 assessed: 07/11/24 Feeling nervous, anxious, or on edge: 1 = Several days Not being able to stop or control worryin = Several days Worrying too much about different things: 1 = Several days Trouble relaxin = Several days Being so restless that it is hard to sit still: 1 = Several days Becoming easily annoyed or irritable: 1 = Several days Feeling afraid as if something awful might happen: 0 = Not at all Total JESSICA-7 score (0-4 normal; 5-9 mild; 10-14 moderate; 15-21 severe): 6 Source: Developed by Drs. Patel Adan, Leticia Rowley, Raji French and colleagues, with an educational maxime from [employer]. JESSICA-7 Assessment Billing JESSICA-7 Assessment Tool: JESSICA-7 Assessment 16700 Physical exam (Primary Care) Vital Signs: Last Vital Signs Temp 97.8 F 03/11/25 14:25 Pulse 76 07/11/24 14:25 BP 136/80 07/11/24 14:25 Pulse Ox 98 07/11/24 14:25 BMI result Body Mass Index 26.2 Tobacco/Smoking Status: Tobacco use Status Tobacco use date assessed 07/11/24 07/11/24 14:30 Patient Tobacco Use Status Former Tobacco user 07/11/24 14:25 e-Cigarette/Vaping Use Never Used 07/11/24 14:25 PHQ-9: PHQ-9 Score PHQ-9: Total score 9 07/11/24 14:30 Depression Screening Interpretation: Positive (denies any si or hi, reports this is do to lack of sleep from injury) Thrive Assessment: Date of Thrive Assessment Date Thrive assessed 07/11/24 07/11/24 14:30 Currently or been in a relationship where the following occur: No concerns reported Coding Level of Care Code Est Pt Level 3 (67594) Diagnoses Screening for colon cancer Z12. Sciatica of left side M54.32 Additional Codes JESSICA-7 Assessment Billing - JESSICA-7 Assessment Tool: JESSICA-7 Assessment 81223 ([id number]) PHQ-9 - 56638 - PHQ-9 Billing: Yes ([id number]) Assessment & Plan Assessment & Plan (1) Screening for colon cancer: Code(s): Z12.11 - Encounter for screening for malignant neoplasm of colon Category: Medical (2) Sciatica of left side: Code(s): M54.32 - Sciatica, left side Category: Medical Plan . Orders: Orders XR lumbar spine 2-3V Today M54.32 - Sciatica, left side PT Evaluation and Treatment Today M54.32 - Sciatica, left side Referrals Gastroenterology Referral Z12.11 - Encounter for screening for malignant neoplasm of colon Medications: New dexamethasone 1 tab 3 times a days for 3 days, 1 tab twice a day for 3 days, 1 tab daily for 3 days 4 mg PO DAILY 9 days 18 tabs 0RF gabapentin 100 mg PO 3XD 30 days 90 caps 0RF baclofen 10 mg PO BEDTIME 30 days 30 tabs 2RF
--- OUTSIDE RECORDS SUMMARY | 2024-07-11 17:35 | XMS_ITS | Clinical Summary ---
Author Organization [facility] ity Address [address] [place] [address] Care Team Providers Care Bridge Construction Inspector Name Role Phone Nicola Vital MD Primary Care Provider [phone] Medical History Medical History Date Comments Backache, [...] patient's age to complete this topic Meningococcal B Vacine Aged Out No lo nger eligible based on patient's age to complete [...] age to complete this topic Care Teams Bridge Construction Inspector Relationship Specialty Start Date End Date Nicola Vital MD PCP - General Internal Medicine 12/16/11
== END 2024-07-11 14:58 | disposition home or self-care (01) ==
LOC: HO.HMCC 14:19
PROVIDERS: PCP Nurse Practitioner Family; Visit Provider Nurse Practitioner Family
DX: Z12.11 Encounter for screening for malignant neoplasm of colon (principal); M54.32 Sciatica, left side

== ENCOUNTER → 2024-07-11 15:03 | Outpatient (BNV) | payer OTHER, SELFPAY | PROVIDERS: PCP Nurse Practitioner Family; Visit Provider Radiology Diagnostic Radiology | DX: M47.817 Spondylosis without myelopathy or radiculopathy, lumbosacral region (principal); Z96.82 Presence of neurostimulator | CPT/HCPCS: 72100 ==

== ENCOUNTER 2024-07-24 15:14 | Outpatient (AMB) | payer OTHER, SELFPAY ==
--- NOTE | 2024-07-24 15:31 | MHC.OFFWIV ---
Intake Vital Signs 07/24/24 15:33 Weight 212 lb BP 120/80 Blood Pressure Location Rt brachial Position Sitting Pulse 86 Pulse Source Pulse Oximeter Pulse Oximetry (%) 98 Oxygen Delivery Method Room Air Intake Visit Reasons: EP abscess on chin Intake Note: Patient here abscess on chin that has been present for about 1 week. Patient Tobacco Use Status: Former Tobacco user Allergies methimazole Adverse Reaction (Unknown, Verified 07/24/24 15:34) transaminitis pravastatin Adverse Reaction (Unknown, Verified 07/24/24 15:34) Soreness Do you need a note to return to daycare/school/sports/work: No HPI HPI Comments History of Present Illness Details History of Present Illness - The patient is a 44-year-old male presenting with a painful indurated chin lesion. - The lesion appeared a week prior and was initially draining but then closed up. - There is no reported history of Methicillin-Resistant Staphylococcus Aureus (MRSA) infections. - Warm compresses were utilized to assist in draining the lesion. Physical Exam General: Cooperative, healthy appearing, comfortable, no acute distress and well developed Orientation: Patient oriented x3 Limitations: No limitations Head: Normal to inspection Ears: Hearing grossly normal bilaterally Nose: Normal External nose present Face and sinus: Indurated area on chin, approx 1.25cm round, no drainage elicited with pressure from pinpoint area of purulence at center Eyes: Appearance normal, both eyes and all related structures Neck: Normal visual inspection and Yes full ROM Respiratory: Normal respiratory effort and able to speak in complete sentences. Skin: No rashes or lesions noted Neuro: Patient oriented x3 Extremities: Normal to inspection [facility] Medical History Pericarditis Patella-femoral syndrome Knee pain Overweight (BMI 25.0-29.9) Vitamin D deficiency Graves' orbitopathy Post-surgical hypothyroidism Lumbar radiculopathy Graves disease Tachycardia GERD (gastroesophageal reflux disease) Hyperthyroidism Dyslipidemia Asthma Surgical History History of eye surgery Hx of total thyroidectomy H/O radioactive iodine thyroid ablation Hx of hand surgery History of shoulder surgery History of back surgery Family History Father No problems noted. Mother No problems noted. Brother No problems noted. Brother No problems noted. Sister Thyroid cancer Sister Thyroid cancer Sister No problems noted. Sister No problems noted. Son No problems noted. Daughter No problems noted. Daughter No problems noted. Social History Housing: House Alcohol intake: current Alcohol intake frequency: holidays/special occasions only Patient Tobacco Use Status: Former Tobacco user e-Cigarette/Vaping Use: Never Used Second Hand Smoke Exposure: Yes service: No Current occupational status: employed Current occupation: [employer] Current occupational exposures/hazards: No Cognitive needs: No Hearing needs: No Vision needs: No Review of Systems Const All systems reviewed & are unremarkable except as noted in HPI and below Physical Exam Vital Signs: Last Vital Signs Pulse 86 07/24/24 15:33 BP 120/80 07/24/24 15:33 Pulse Ox 98 07/24/24 15:33 Oxygen Delivery Method Room Air 07/24/24 15:33 Assessment & Plan Assessment & Plan (1) Abscess of chin: Code(s): L02.01 - Cutaneous abscess of face Plan: For the abscess, the plan involves initiating oral antibiotic therapy with Cephalexin to manage the bacterial infection effectively. Given the lesion's presentation and lack of MRSA history, this treatment is anticipated to lead to resolution. The antibiotic will be administered four times daily, every six hours, for a total of seven days to ensure thorough eradication and prevent recurrence. Continuation of warm compresses is suggested to aid in drainage. Incision and drainage are deemed not helpful due to the indurated nature of the lesion. If it persists, we may need to add Doxycycline, pt was instructed to return to this clinic if no improvement over next few days. Patient was informed and verbally consented to the use of an ambient scribe for clinic note documentation during this visit. Medications: New cephalexin 500 mg PO Q6H 28 caps 0RF Coding Level of Care Code Est Pt Level 3 (06504) Diagnoses Abscess of chin L02.01
[2024-07-24 15:33] VITALS: BP 120/80; PULSE 86; O2SAT 98
--- OUTSIDE RECORDS SUMMARY | 2024-07-24 18:05 | XMS_ITS | Clinical Summary ---
Author Organization [facility] ity Address [address] [place] [address] Care Team Providers Care Quality Control Engineer Name Role Phone Nicola Vital MD Primary Care Provider [phone] Medical History Medical History Date Comments Backache, [...] age to complete this topic Care Teams Quality Control Engineer Relationship Specialty Start Date End Date Nicola Vital MD PCP - General Internal Medicine 12/16/11
== END 2024-07-24 16:17 | disposition home or self-care (01) ==
PROVIDERS: PCP Nurse Practitioner Family; Visit Provider Physician Assistant
DX: L02.01 Cutaneous abscess of face (principal)

== ENCOUNTER → 2024-07-24 15:14 | Outpatient (BNVA) | payer OTHER, SELFPAY | PROVIDERS: PCP Nurse Practitioner Family; Visit Provider Physician Assistant ==

== ENCOUNTER 2024-09-21 14:00 | Outpatient (RCR) | payer OTHER, SELFPAY ==
--- NOTE | 2024-08-15 07:08 | MHC.PT.EP ---
[facility] [place] Office [place] [facility] [place] Office [address] Doron Estrada [address] [phone] F: [phone] F: [phone] F: [phone] F: [phone] Physical Therapy Plan of Care Date of Evaluation: 08/15/24 Date of Surgery: Diagnosis: sciatica of L side. Assessment: Patient is a 44 year old R handed male who presents with s/s consistent with sciatica of left side, low back pain. 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 Patient past medical history includes knee, wrist, back, shoulder surgery, spinal cord stimulator, graves, GERD, and asthma. Current impairments include pain, posture, flexibility, ROM, strength, activity tolerance and functional mobility. Functional limitations include decreased ability to bend, lift, carry, push, pull, sleep, go to the gym, dress and sit for longer durations. Patient is motivated with good rehab potential. Skilled PT will address impairments and functional limitations in order to achieve goals. Frequency and Duration: The patient will be seen 2x/week for 5 weeks Short Term Goals: I with HEP -2 weeks AROM rotation 75% and pain free - 3 weeks 90/90 lacking < 30 on L - 3 weeks Min tight b/l gastroc - 3 weeks Senior Living Goals: AROM flexion to 50% pain free - 5 weeks Hip strength 4+/5 grossly - 5 weeks Oswestry 18% or less - 5 weeks Hip flexion 110 on L - 5 weeks Able to sit 1 hour without increased pain - 5 weeks Able to sleep pain free - 5 weeks Treatment Plan: Modalities to reduce pain, spasms and effusion. Manual therapy to restore motion and function. Therapeutic exercise to improve strength and flexibility. Neuromuscular re-education for posture and balance. Therapeutic activities to return to functional activities of daily living. Electronically signed by: Quentin Shannon PT Please sign and return to therapist. Thank you for your referral.
--- NOTE | 2024-11-10 06:49 | MHC.PT.DC ---
[facility] [place] Office [place] Office [place] Office [address] Doron Estrada [address] [phone] F: [phone] F: [phone] F: [phone] F: [phone] Physical Therapy Discharge Report Diagnosis: sciatica of L side. Date of Surgery: Date of Evaluation: 08/15/24 Date of Discharge: Treatments to Date: 4 Cancellations to Date: No Shows to Date: Discharge Status: Patient Elected to Stop Discharge Summary: 09/21; Pt fatigued after 7 wall slides. No pain with exs. Elida c/o soreness. NV hip strengthening exs. 09/13;Pt weaker and tighter on L L.E. No L L.E sxs after RX .08/22/24: pt progressed with stretching and hip strength. assess response and progress as tolerated. Patient is a 44 year old R handed male who presents with s/s consistent with sciatica of left side, low back pain. 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 Patient past medical history includes knee, wrist, back, shoulder surgery, spinal cord stimulator, graves, GERD, and asthma. Current impairments include pain, posture, flexibility, ROM, strength, activity tolerance and functional mobility. Functional limitations include decreased ability to bend, lift, carry, push, pull, sleep, go to the gym, dress and sit for longer durations. Patient is motivated with good rehab potential. Skilled PT will address impairments and functional limitations in order to achieve goals. Electronically signed by: Quentin Shannon, PT Please sign and return to therapist. Thank you for your referral.
== END 2024-11-10 06:49 | disposition home or self-care (01) ==
LOC: HO.PTCHIC 14:00
PROVIDERS: PCP Nurse Practitioner Family; Visit Provider Nurse Practitioner Family
DX: M54.32 Sciatica, left side (principal)
CPT/HCPCS: 97110; 97162; 97530

== ENCOUNTER 2024-11-28 06:01 | Outpatient (REF) | payer OTHER, SELFPAY ==
[2024-11-28 10:14] LABS: MANUAL DIFF FLAG NO
[2024-11-28 10:19] LABS: Hematocrit 38.9 % (42.0-52.0); Hemoglobin 12.9 g/dl (14.0-18.0); Imm Gran Abs Auto 0.00 X10*3/uL (0.00-0.03); Imm Gran Pct Auto 0.0 % (0.0-0.4); Lymphocytes Absolute Auto 2.2 X10*3/uL (1.2-4.9); Mean Corpuscular HGB Conc 33.2 g/dl (31.0-36.0); Mean Corpuscular Hemoglobin 29.9 pg (27.0-33.0); Mean Corpuscular Volume 90.0 fL (80.0-98.0); NRBC Abs Auto 0.000 X10*3/uL (0.0-0.012); NRBC Pct Auto 0.0 /100WBC (0.0-0.2); Platelet Count 283 X10*3/uL (160-400); Red Blood Count 4.32 X10*6/uL (4.60-5.80); White Blood Count 3.8 X10*3/uL (4.8-10.8)
[2024-11-28 11:06] LABS: Alanine Aminotransferase 25 U/L (0-40); Albumin Level 4.4 g/dL (3.5-5.0); Alkaline Phosphatase 57 U/L (39-117); Anion Gap 12 (12-20); Aspartate Amino Transferase 38 U/L (5-37); Blood Urea Nitrogen 17 mg/dL (9-16); Calcium 8.9 mg/dL (8.4-10.2); Carbon Dioxide 26 mmol/L (22-29); Chloride 108 mmol/L (96-108); Cholesterol 259 mg/dL (<200); Estimated Glomerular Filt Rate > 60; HDL Cholesterol 53 mg/dL (>40); Potassium 3.7 mmol/L (3.3-5.1); Sodium 142 mmol/L (135-145); Total Protein 6.9 g/dL (6.5-8.0); Triglycerides 108 mg/dL (<150)
== END 2024-11-28 06:02 | disposition home or self-care (01) ==
LOC: HO.HMGCLDS 06:01
PROVIDERS: PCP Nurse Practitioner Family; Visit Provider Nurse Practitioner Family
DX: I10 Essential (primary) hypertension (principal); Z12.5 Encounter for screening for malignant neoplasm of prostate
CPT/HCPCS: 36415; 80053; 80061; 84153; 84443; 85025

== ENCOUNTER 2024-12-01 06:01 | Outpatient (REF) | payer OTHER, SELFPAY ==
[2024-12-01 11:00] LABS: Appearance Urine Clear; Glucose Urine UA Negative (Negative); PH 6.0 (5.0-9.0); Specific Gravity - Urine >= 1.030 (1.005-1.025)
[2024-12-01 11:18] LABS: Reticulocytes Absolute 0.043 X10*6/uL (0.026-0.095)
[2024-12-01 11:29] LABS: Iron 68 mcg/dL (45-160); Percent Iron Saturation 31 % (15-50); Total Iron Binding Capacity 219 mcg/dL (228-428); Unsaturated Iron Binding 151 ug/dL
[2024-12-01 11:48] LABS: Folate 5.1 ng/mL (> or = 4.0); Vitamin B12 692 pg/mL (200-900)
[2024-12-01 11:52] LABS: Ferritin 89 ng/mL (20-250)
== END 2024-12-01 06:02 | disposition home or self-care (01) ==
LOC: HO.HMGCLDS 06:01
PROVIDERS: PCP Nurse Practitioner Family; Visit Provider Nurse Practitioner Family
DX: I10 Essential (primary) hypertension (principal); D64.9 Anemia, unspecified
CPT/HCPCS: 36415; 81003; 82607; 82728; 82746; 83540; 83615; 85045

== ENCOUNTER 2025-02-12 13:15 | Outpatient (AMB) | payer OTHER, SELFPAY ==
--- OUTSIDE RECORDS SUMMARY | 2025-02-12 13:19 | XMS_ITS | Clinical Summary ---
Author Organization [facility] ity Address [address] [place] [address] Care Team Providers Care Coffin Maker Name Role Phone Nicola Vital MD Primary Care Provider Medical History Medical History Date Comments Backache, [...] of 3 - 19+ 3-dose series) 1998 HPV Vaccines (1 - 3-dose SCD M series) 2006 Depression Screening 05/03/2024 COVID-19 Vaccine ( - 2023-2 5 season) 2025 Influenza Vaccine (#1) 2025 RSV Immunization Adult Patie nts (1 - 1-dose 75+ series) 2054 HIB Vaccines Aged Out No longer eligi [...] age to complete this topic Meningococcal B Vaccine Aged Out No l onger eligible based on patient's age to complete this topic Pneumococcal Vaccine: Pediat rics (0 to 5 Years) and At-Risk Patients (6 to 49 Years) Aged Out No longer eligible b ased on patient's age to complete this topic RSV Immunization Patients Un june 20 months Aged Out No longer eligible b ased on patient's age to complete this topic Varicella Vaccines Aged Out No longer eligible based on patient's age to complete this topic Care Teams Coffin Maker Relationship Specialty Start Date End Date Nicola Vital MD PCP - General Internal Medicine 12/16/11
[2025-02-12 13:24] VITALS: BP 140/92; PULSE 82; RESP 16; O2SAT 96; BMI 25.9
--- NOTE | 2025-02-12 13:24 | A.OFFPC_ITS ---
Vital Signs 02/12/25 13:24 Height 6 ft 2 in Weight 202 lb BMI 25.9 BP 140/92 H Blood Pressure Location Lt brachial Position Sitting Respiration 16 Pulse 82 Pulse Source Pulse Oximeter Pulse Oximetry (%) 96 Oxygen Delivery Method Room Air Intake Visit Reasons: 3m follow up RE 10/12 Rn Observation Required: No Accompanied by: Self / Same As Patient Allergies methimazole Adverse Reaction (Unknown, Verified 02/12/25 13:51) transaminitis pravastatin Adverse Reaction (Unknown, Verified 02/12/25 13:51) Soreness Medication List - Last Reconciled 02/12/25 by NISHI Clements- atorvastatin 40 mg PO BEDTIME 90 days baclofen 10 mg PO BEDTIME 30 days cephalexin 500 mg PO Q6H cholecalciferol (vitamin D3) 50 mcg PO DAILY gabapentin 100 mg PO 3XD 30 days Levoxyl (levothyroxine) 1 tab once a day for 6 days, 1.5 tab on the 7th day; NS Tobacco use date assessed: 02/12/25 Dental Screening Dental Screen Date: 02/12/25 Did you have a dental visit in the last 12 months?: Yes Did you have a dental problem in the last 6 months where you did not have access to dental care?: No Was dental information given to patient?: Patient has dentist HPI 3m follow up RE 10/12 HPI Details Chief Complaint The patient presents for a follow-up regarding high blood pressure. History of Present Illness The patient is a 44-year-old male presenting with a follow-up for high blood pressure management. He denies experiencing any headaches, blurred vision, chest pain, or dyspnea, indicating stable blood pressure control without acute symptoms. The patient reports doing well overall and has been losing weight, which is a positive indicator for blood pressure management. He has no edema, and his cardiovascular examination reveals normal S1 and S2 heart sounds, with clear lung auscultation. The plan includes obtaining fasting laboratory tests to monitor his condition further. Will have him send me values from home in the near future. Social History Health Maintenance Review of Systems - Neurological: Denies headaches or blur red vision - Cardiovascular: Denies chest pain - Respiratory: Denies dyspnea Physical Exam General: Cooperative, healthy appearing, comfortable, no acute distress and well developed Orientation: Patient oriented x3 Limitations: No limitations Head: Normal to inspection Ears: Hearing grossly normal bilaterally Nose: Normal external nose present Face and sinus: Normal facial exam Eyes: Appearance normal, both eyes and all related structures Neck: Normal visual inspection and Yes full ROM Respiratory: Normal respiratory effort and able to speak in complete sentences. Clear to auscultation bilaterally Cardiovascular: Regular rate and rhythm. Normal S1 and S2 GI: Normal to inspection. Soft to palpation and nontender Skin: No rashes or lesions noted Neuro: Patient oriented x3 Extremities: Normal to inspection, no edema noted Results Plan 1. Essential Hypertension The patient is scheduled for fasting laboratory tests to monitor his hypertension management. He is advised to continue with lifestyle modifications, including weight management, to aid in blood pressure control. Discussion Notes Patient Instructions [facility] Medical History Decreased white blood cell count, unspecified Rupture of right patellar tendon Pericarditis Patella-femoral syndrome Knee pain Overweight (BMI 25.0-29.9) Vitamin D deficiency Graves' orbitopathy Post-surgical hypothyroidism Lumbar radiculopathy Graves disease Tachycardia GERD (gastroesophageal reflux disease) Hyperthyroidism Dyslipidemia Asthma Surgical History H/O right knee surgery History of eye surgery Hx of total thyroidectomy H/O radioactive iodine thyroid ablation Hx of hand surgery History of shoulder surgery History of back surgery Family History Father No problems noted. Mother No problems noted. Brother No problems noted. Brother No problems noted. Sister Thyroid cancer Sister Thyroid cancer Sister No problems noted. Sister No problems noted. Son No problems noted. Daughter No problems noted. Daughter No problems noted. Social History Housing: House Alcohol intake: current Alcohol intake frequency: holidays/special occasions only Patient Tobacco Use Status: Former Tobacco user e-Cigarette/Vaping Use: Never Used Second Hand Smoke Exposure: Yes service: No Current occupational status: employed Current occupation: [employer] Current occupational exposures/hazards: No Cognitive needs: No Hearing needs: No Vision needs: No Questionnaire PHQ-9 Over the last 2 weeks, how often have you been bothered by any of the following problems? 1. Little interest or pleasure in doing things: nearly every day 2. Feeling down, depressed, or hopeless: not at all 3. Trouble falling or staying asleep, or sleeping too much: nearly every day 4. Feeling tired or having little energy: several days 5. Poor appetite or overeating: several days 6. Feeling bad about yourself - or that you are a failure or have let yourself or your family down: not at all 7. Trouble concentrating on things, such as reading the newspaper or watching television: several days 8. Moving or speaking so slowly that other people could have noticed. Or the opposite - being so fidgety or restless that you have been moving around a lot more than usual: not at all 9. Thoughts that you would be better off or of hurting yourself in some way: not at all Total score: 9 Depression Screening Interpretation: Positive (denies any si or hi, reports this is do to lack of sleep from injury) Depression Screening Done: Yes 46617 - PHQ-9 Billing: Yes Source: Developed by Drs. Patel Adan, Leticia Rowley, Raji French and colleagues, with an educational maxime from [employer]. Thrive Questionnaire Date Thrive assessed: 07/11/24 I am a: Patient What is your living situation today?: I have a steady place to live Within the past 12 months, did the food you bought not last and you didn't have the money to get more?: Never true Within the past 12 months, did you worry whether your food would run out before you got money to buy more?: Never true Do you have trouble paying for medicines?: Yes Do you have trouble getting transportation to medical appointments?: No Do you have trouble paying your heating and electricity bill?: No Do you have trouble taking care of your child, family member or friend?: No Do you have trouble with day-to-day activities such as bathing, preparing meals, shopping, managing finances, etc.?: Yes Are you currently unemployed and looking for a job?: No Are you interested in more education?: No Please select the resources that you would like help with: None Currently or been in a relationship where the following occur: No concerns reported THRIVE Score: 0 JESSICA-7 AMB Questionnaire JESSICA-7 Date JESSICA - 7 assessed: 02/12/25 Feeling nervous, anxious, or on edge: 1 = Several days Not being able to stop or control worryin = Several days Worrying too much about different things: 1 = Several days Trouble relaxin = Several days Being so restless that it is hard to sit still: 1 = Several days Becoming easily annoyed or irritable: 1 = Several days Feeling afraid as if something awful might happen: 0 = Not at all Total JESSICA-7 score (0-4 normal; 5-9 mild; 10-14 moderate; 15-21 severe): 6 Source: Developed by Drs. Patel Adan, Leticia Rowley, Raji French and colleagues, with an educational maxime from [employer]. JESSICA-7 Assessment Billing JESSICA-7 Assessment Tool: JESSICA-7 Assessment 86926 Physical exam (Primary Care) Vital Signs: Last Vital Signs Pulse 82 02/12/25 13:24 Resp 16 02/12/25 13:24 BP 140/92 H 02/12/25 13:24 Pulse Ox 96 02/12/25 13:24 Oxygen Delivery Method Room Air 02/12/25 13:24 BMI result Body Mass Index 25.9 Tobacco/Smoking Status: Tobacco use Status Tobacco use date assessed 02/12/25 02/12/25 13:31 Patient Tobacco Use Status Former Tobacco user 02/12/25 13:31 e-Cigarette/Vaping Use Never Used 02/12/25 13:31 PHQ-9: PHQ-9 Score PHQ-9: Total score 9 02/12/25 13:48 Depression Screening Interpretation: Positive (denies any si or hi, reports this is do to lack of sleep from injury) Thrive Assessment: Date of Thrive Assessment Date Thrive assessed 07/11/24 02/12/25 13:31 Currently or been in a relationship where the following occur: No concerns reported Coding Level of Care Code Est Pt Level 3 (48677) Diagnoses Dyslipidemia E78.5 HTN (hypertension) I10 Screening for prostate cancer Z12.5 Additional Codes JESSICA-7 Assessment Billing - JESSICA-7 Assessment Tool: JESSICA-7 Assessment 52168 ([id number]) PHQ-9 - 53006 - PHQ-9 Billing: Yes ([id number]) Assessment & Plan Assessment & Plan (1) Dyslipidemia: Code(s): E78.5 - Hyperlipidemia, unspecified Category: Medical (2) HTN (hypertension): Code(s): I10 - Essential (primary) hypertension Category: Medical (3) Screening for prostate cancer: Code(s): Z12.5 - Encounter for screening for malignant neoplasm of prostate Category: Medical Plan . Orders: Orders Complete Blood Count Auto Diff Today E78.5 - Hyperlipidemia, unspecified, I10 - Essential (primary) hypertension Comprehensive [place]. Panel Fast Today E78.5 - Hyperlipidemia, unspecified, I10 - Essential (primary) hypertension TSH reflex Free T4 Today E78.5 - Hyperlipidemia, unspecified, I10 - Essential (primary) hypertension UA CC w/rflx Micro + Cult Today E78.5 - Hyperlipidemia, unspecified, I10 - Essential (primary) hypertension Lipid Panel Today E78.5 - Hyperlipidemia, unspecified, I10 - Essential (primary) hypertension Prostate Specific Antigen Scr Today Z12.5 - Encounter for screening for malignant neoplasm of prostate
== END 2025-02-12 15:28 | disposition home or self-care (01) ==
LOC: HO.HMCC 13:15
PROVIDERS: PCP Nurse Practitioner Family; Visit Provider Nurse Practitioner Family
DX: E78.5 Hyperlipidemia, unspecified (principal); I10 Essential (primary) hypertension; Z12.5 Encounter for screening for malignant neoplasm of prostate

== ENCOUNTER → 2025-02-12 13:15 | Outpatient (BNVA) | payer OTHER, SELFPAY | PROVIDERS: PCP Nurse Practitioner Family; Visit Provider Nurse Practitioner Family | DX: I10 Essential (primary) hypertension (principal); E78.5 Hyperlipidemia, unspecified; Z13.31 Encounter for screening for depression; Z13.39 Encounter for screening examination for other mental health and behavioral disorders | CPT/HCPCS: 96127 ==